=== PATIENT | female | born 1980 | race Two or more races ===

== ENCOUNTER 2024-08-09 06:15 | Day surgery (SDC) | payer OTHER ==
[2024-07-30 08:39] LABS: HEMATOCRIT 38.8 % (36.0-45.00); HEMOGLOBIN 13.4 g/dL (12.0-15.00); MEAN CELL VOLUME 85.9 fL (80.00-100.00); MEAN CORPUSCULAR HEMOGLOBIN 29.6 pg (27.00-32.0); MEAN CORPUSCULAR HGB CONC 34.5 g/dl (32.0-36.0); PLATELET COUNT 252 K/uL (150-450); RED BLOOD COUNT 4.51 M/uL (4.00-6.00); RED CELL DISTRIBUTION WIDTH 13.3 % (11.5-14.5)
[2024-07-30 08:43] VITALS: BP 130/90
[2024-07-30 09:15] LABS: INR 0.97; PROTHROMBIN TIME 10.6 SECONDS (9.0-11.5)
[2024-07-30 09:30] LABS: PH,URINE 5.5 (5.0-8.0); URINE APPEARANCE Clear; URINE BILIRRUBIN Negative (NEGATIVE); URINE BLOOD Negative; URINE COLOR Yellow; URINE GLUCOSE Negative (NEGATIVE); URINE KETONE Negative (NEGATIVE); URINE LEUKOCYTE Negative; URINE NITRATE Negative; URINE PROTEIN Negative (NEGATIVE); URINE UROBILINOGEN 0.2 E.U./dl
[2024-07-30 09:36] LABS: URINE BACTERIA 80.7 uL (0.0-1933); URINE EPITHELIAL CELLS 4.4 uL (0.0-38.8); URINE RBC 7.5 uL (0.0-20.8)
[2024-07-30 10:02] LABS: URINE WBC 1.4 uL (0.0-23.2)
[2024-07-30 11:02] LABS: ALBUMIN 3.8 gm/dL (3.4-5.0); BILIRUBIN TOTAL 0.34 mg/dL (0.3-1.2); CALCIUM 9.2 mg/dL (8.5-10.1); CREATININE SERUM 0.8 mg/dL (0.55-1.02); GFR 78.28; GLOBULINA 3.6 G/DL (2.4-3.5); POTASSIUM 4.19 mEq/L (3.5-5.1); TOTAL PROTEIN 7.4 gm/dL (6.4-8.2)
[~2024-08-09] VITALS: Ht 172.7 cm; Wt 127.0 kg
[~2024-08-09 06:15] MED LIST: AVALIDE 300-121 EACH PO; LEVOTHYROXINE25 MCG PO; TOPROL XL100 M1 PO
[2024-08-09 17:36] LABS: ABG PH 7.397 (7.35-7.45); ABG PO2 86.7 mmHg (80-100); ABG pCO2 37.6 mmHg (35-45); BASE EXCESS -1.8 mmol/l; BICARBONATE 22.6 mmol/l (23-25); SaO2 96.5 %; Tco2 23.8 mmol/l; allen test SATISFACTORY; puncture site RADIAL LEFT
[2024-08-09 17:37] LABS: mode ROOM AIR; o2 21 %
== END 2024-08-09 18:30 | disposition home or self-care (01) ==
LOC: CIR.AMB 06:15
PROVIDERS: ATTEND Otolaryngology
DX: K11.7 Disturbances of salivary secretion (principal); Z53.09 Procedure and treatment not carried out because of other contraindication; J35.1 Hypertrophy of tonsils